=== PATIENT | male | born 1965 | race African-American/Black ===

== ENCOUNTER 2017-01-20 04:50 | Emergency (ER) | payer OTHER ==
[~2017-01-20] VITALS: Ht 165.1 cm; Wt 59.0 kg
[2017-01-20 04:50] VITALS: BP 0/0
[2017-01-20] MEDS ORDERED: EPINEPHRINE 0.1MG/ML (1:10,000) 10ML SYR ONE (07:01)
== END 2017-01-20 09:19 | disposition expired ==
LOC: ER 04:51
DX: S31.111A Laceration without foreign body of abdominal wall, left upper quadrant without penetration into peritoneal cavity, initial encounter (principal); I46.9 Cardiac arrest, cause unspecified; E78.00 Pure hypercholesterolemia, unspecified; I10 Essential (primary) hypertension; W45.8XXA Other foreign body or object entering through skin, initial encounter; Y93.89 Activity, other specified; Y92.89 Other specified places as the place of occurrence of the external cause; Y99.8 Other external cause status
CPT/HCPCS: 31500; 32551; 92950; 99285; J0171